=== PATIENT | male | born 1955 | race Caucasian/White ===

== ENCOUNTER 2023-05-22 11:31 | Emergency (ER) | payer MEDICARE ==
[~2023-05-22] VITALS: Ht 177.8 cm; Wt 84.1 kg
[2023-05-22 12:39] LABS: ALANINE AMINOTRANSFERASE 24 U/L (0-55); ALBUMIN 4.4 gm/dL (3.4-4.8); ALKALINE PHOSPHATASE 44 U/L (40-150); ANION GAP 9 mmol/L (7-16); AST,SGOT 22 U/L (5-34); BILIRUBIN,TOTAL 1.4 mg/dL (0.2-1.2); BLOOD UREA NITROGEN 14 mg/dL (8-26); CALCIUM 9.5 mg/dL (8.4-10.2); CHLORIDE 107 mmol/L (98-107); CREATININE, serum 1.03 mg/dL (0.72-1.25); GLUCOSE 125 mg/dL (70-99); POTASSIUM 4.1 mmol/L (3.5-4.5); SODIUM 138 mmol/L (136-145); TOTAL PROTEIN 6.9 gm/dL (6.2-8.1)
[2023-05-22 12:43] LABS: BASO # 0.1 K/mm3 (0.0-0.2); BASO % 1.4 % (0.0-2.0); EOS # 0.1 K/mm3 (0.0-0.7); EOS % 1.7 % (0.0-4.0); GRAN % 60.1 % (42.2-75.2); HEMATOCRIT 43.1 % (42.0-52.0); HEMOGLOBIN 14.5 g/dl (13.5-18.0); LYMPH # 2.1 K/mm3 (1.2-3.4); LYMPH % 30.9 % (20.0-51.0); MEAN CELL VOLUME 90 fl (80.0-100.0); MEAN CORPUSCULAR HEMOGLOBIN 30 pg (27-31); MEAN CORPUSCULAR HGB CONC 34 g/dl (33.0-37.0); MEAN PLATELET VOLUME 9.4 fl (7.4-10.4); MONO # 0.4 K/mm3 (0.1-0.6); MONO % 5.4 % (1.7-9.3); PLATELET COUNT 257 K/mm3 (130-400); RED BLOOD COUNT 4.78 M/mm3 (4.20-5.60); REDCELL DISTRIBUTION WIDTH-CV 12.4 % (11.5-14.5)
[2023-05-22 12:49] LABS: TROPONIN-I < 0.010 ng/mL (0.00-0.033)
[2023-05-22] MEDS ORDERED: NS 100 ML IV SCH (13:07)
[2023-05-22] MEDS ORDERED: Iohexol 300 - 100 ML VIAL IV ONE (13:07)
[2023-05-22] MEDS ORDERED: Meclizine 25 MG TAB PO ONE (14:00)
[2023-05-22] MEDS ORDERED: LR 1,000 ML IV ONE (14:00)
[2023-05-22 14:05] LABS: URINE APPEARANCE CLEAR (CLEAR/HAZY); URINE BLOOD NEGATIVE (NEGATIVE); URINE COLOR YELLOW (YELLOW); URINE GLUCOSE NEGATIVE (NEGATIVE); URINE KETONE 1+ (NEGATIVE); URINE NITRATE NEGATIVE (NEGATIVE); URINE PROTEIN(semi-quant) NEGATIVE (NEGATIVE); URINE UROBILINOGEN 0.2 E.U/dL (0.2-1.0)
[2023-05-22 14:18] LABS: COLLECTION METHOD CLEAN CATCH
[2023-05-22] MEDS ORDERED: ANTIVERT 25MG25 MG PO (15:29)
[2023-05-22 15:31] VITALS: BP 158/90; PULSE 77
== END 2023-05-22 15:38 | disposition home or self-care (01) ==
LOC: COL.ER 11:31
PROVIDERS: Emergency Medicine
DX: I10 Essential (primary) hypertension (principal); R53.1 Weakness; Z91.148 Patient's other noncompliance with medication regimen for other reason
CPT/HCPCS: J7120; Q9967